=== PATIENT | male | born 1975 | race Asian ===

== ENCOUNTER → 2020-11-02 | Outpatient (CLI) | payer BC ==
[2020-11-02 08:42] LABS: Basophils # (auto) 0 10 ^3/uL (0-0.2); Basophils % (auto) 0.4 % (0.0-2.0); Eosinophils # (auto) 0.4 10 ^3/uL (0-0.8); Eosinophils % (auto) 6.2 % (0.0-7.0); Hematocrit 47.1 % (41.0-53.0); Lymphocytes # (auto) 2.3 10 ^3/uL (0.4-5.4); Lymphocytes % (auto) 33.3 % (10.0-50.0); Mean Corpuscular Hemoglobin 28.7 pg (28.0-32.0); Mean Corpuscular Hgb Conc. 33.9 g/dL (32.0-36.0); Mean Corpuscular Volume 84.5 fL (80.0-100.0); Monocytes # (auto) 0.5 10 ^3/uL (0-1.3); Monocytes % (auto) 7.2 % (0.0-12.0); Neutrophils # (auto) 3.6 10 ^3/uL (1.6-8.6); Neutrophils % (auto) 52.9 % (37.0-80.0); Nucleated Red Blood Cells % 0.1 %; Platelet Count (auto) 397 10^3/uL (140-450); Red Blood Cells 5.57 10^6/uL (4.5-5.90); Red Cell Distribution Width 13.5 % (11.8-14.3); White Blood Cell 6.8 10^3/uL (4.4-10.8)
[2020-11-02 09:25] LABS: Albumin 4.1 g/dL (3.4-5.0); Calcium 9.3 mg/dL (8.5-10.1); Potassium 4.4 mmol/L (3.5-5.1)
[2020-11-02 09:30] LABS: BUN/Creatinine Ratio 15.1; Bilirubin, Total 0.6 mg/dL (0.2-1.0); Total Protein 8.5 g/dL (6.4-8.2)
== END | disposition home or self-care (01) ==
LOC: LAB 08:22
PROVIDERS: ATTEND Student in an Organized Health Care Education/Training Program
DX: R73.9 Hyperglycemia, unspecified (principal); Z86.19 Personal history of other infectious and parasitic diseases
CPT/HCPCS: 36415; 80053; 80061; 83036; 84443; 85025; 86592

== ENCOUNTER → 2021-02-22 | Outpatient (CLI) | payer BC ==
[2021-02-22 09:50] LABS: Cholesterol 234 mg/dL (< 200); HDL Cholesterol 30 mg/dL (40-59); LDL Cholesterol 183 mg/dL (< 100); Triglycerides 166 mg/dL (< 150)
== END | disposition home or self-care (01) ==
LOC: LAB 08:00
PROVIDERS: ATTEND Student in an Organized Health Care Education/Training Program
DX: E78.5 Hyperlipidemia, unspecified (principal); R21 Rash and other nonspecific skin eruption
CPT/HCPCS: 36415; 80061

== ENCOUNTER → 2021-11-26 | Outpatient (CLI) | payer BC | END | disposition home or self-care (01) | LOC: LAB 10:22 | PROVIDERS: ATTEND Internal Medicine Rheumatology | DX: R94.5 Abnormal results of liver function studies (principal); L43.9 Lichen planus, unspecified | CPT/HCPCS: 36415; 85652; 86141; 86200; 86704; 87340; 87902 ==